=== PATIENT | female | born 1955 | race Caucasian/White ===

== ENCOUNTER 2022-02-20 15:53 | Emergency (ER) | payer OTHER, SELFPAY ==
[2022-02-20 16:02] VITALS: BP 114/72; PULSE 74; RESP 20; TEMP 36.9; O2SAT 98; BMI 28.1
--- NOTE | 2022-02-20 16:22 | CRLHL7_ITS ---
For Patients: As a result of the Cures Act, medical imaging exams and procedure reports are released immediately into your electronic medical record. You may view this report before your referring provider. If you have questions, please contact your health care provider. INDICATION: Fall, injury COMPARISON: 02/23/2019 TECHNIQUE: PA chest and left ribs. FINDINGS: Minimal atelectasis at the left lung base. There is no evidence of pulmonary contusion, pneumothorax or pleural effusion. Mild tortuosity of the aorta. Cardiac silhouette normal. Oblique detail views of the ribs demonstrate no evidence of fracture or intrinsic bone lesion. There is no evidence of pleural hematoma. IMPRESSION: No acute cardiopulmonary disease. No left rib fracture. Dictated by Pako Penaloza MD @ 02/20/2022 5:36:58 PM (Electronically Signed)
--- NOTE | 2022-02-20 16:23 | ED.GENADULT ---
HPI - General Adult General Chief complaint: Shoulder Injury/Pain Stated complaint: FELL AND INJURED LEFT SHOULDER/BREAST AREA Time Seen by Provider: 02/20/22 16:15 History of Present Illness HPI narrative: This 66-year-old female comes in with an injury to her left upper lateral anterior ribs because of a fall that occurred prior to arrival. She tripped over a rug by some steps and fell to the floor. She did not hit her head or have loss of consciousness. She was able to get up and ambulate normally afterwards. She had immediate pain in the left upper lateral and anterior chest. This pain is worse when taking a deep breath. She does not report any other injuries. She does state that certain movements with her left arm make the pain worse but she does not report any injury to her left shoulder. Related Data Home Medications Medication Instructions Recorded Confirmed acyclovir 400 mg tablet 400 mg PO DAILY PRN 02/20/22 02/20/22 amlodipine 10 mg tablet 10 mg PO DAILY 02/20/22 02/20/22 atorvastatin 10 mg tablet 10 mg PO DAILY 02/20/22 02/20/22 flecainide 50 mg tablet 50 mg PO DAILY 02/20/22 02/20/22 fluticasone propionate 50 2 spray intranasal DAILY PRN 02/20/22 02/20/22 mcg/actuation nasal spray,suspension methimazole 5 mg tablet 5 mg PO DAILY 02/20/22 02/20/22 omeprazole 20 mg capsule,delayed 20 mg PO BID 02/20/22 02/20/22 release potassium chloride 10 mEq 10 meq PO BID 02/20/22 02/20/22 capsule,extended release sertraline 50 mg tablet 50 mg PO DAILY 02/20/22 02/20/22 trazodone 50 mg tablet 50 mg PO DAILY 02/20/22 02/20/22 triamterene 37.5 1 cap PO DAILY 02/20/22 02/20/22 mg-hydrochlorothiazide 25 mg capsule Allergies Allergy/AdvReac Type Severity Reaction Status Date / Time nitrofurantoin Allergy Verified 02/20/22 16:10 [From Macrobid] Penicillins Allergy Verified 02/20/22 16:09 Review of Systems Status of ROS: Reports: 10 or more systems reviewed and unremarkable except as noted in History and below Narrative: Constitutional: No fevers, no weight gain or loss. Eyes: No discharge. No vision changes. HENT: No congestion, no sore throat, no ear pain. Cardiovascular: No palpitations. Chest: Pain in left upper anterior lateral chest which is reproducible with certain movements and when pressing in this area. Respiratory: No shortness of breath, no wheezes, no cough. Gastrointestinal: No abdominal pain, no vomiting, no diarrhea. Genitourinary: No dysuria, no hematuria. Musculoskeletal: Normal range of motion. Skin: No rashes, no pruritis. Neurological: No dizziness, weakness, sensory change, speech change. Endo/Heme/Allergies: No bruising or bleeding. No polydipsia. Pysch: no suicidality, no anxiety, no insomnia. All other systems reviewed and are negative. PFSH PFS Social History Smoking Status: Never smoker Do you use any of these nicotine containing products: None How often do you have a drink containing alcohol: never AUDIT-C Alcohol total score: 0 Non-prescribed substance use: denies use Exam Narrative: Exam Narrative: Constitutional: Well-developed, well-nourished, no acute distress. HEENT: Normocephalic, atraumatic. Neck: Normal range of motion. Nontender. Supple. Heart: Regular. No murmurs. Normal rate. Intact distal pulses. Lungs: Clear to auscultation. No wheezes, rhonchi, or rales. Chest: Tenderness in the left upper anterior chest wall which is reproducible with certain movements and with palpating this area. There is no external sign of bruising or other injury. Abdomen: Normal bowel sounds. Nontender. No rebound tenderness. Genitalia: Deferred. Back: No midline tenderness. Normal range of motion. Extremities: Normal range of motion. No injury. Skin: Intact. No rash. Warm. No erythema or pallor. Neurologic: No altered sensation. No weakness. Alert and oriented. Psychiatric: No suicidality. No anxiety or depression. No insomnia. Nursing notes and vitals signs are reviewed. Const: Vital Signs, click to edit/add: Vital Signs - 24 hr 02/20/22 16:02 Temperature 98.5 F Pulse Rate [Right Pulse Oximeter] 74 Respiratory Rate 20 Blood Pressure [Ri ght Upper Arm] 114/72 Pulse Oximetry 98 Oxygen Delivery Me thod Room Air Course Vital Signs Vital signs: Initial Vital Signs Temperature 98.5 F 02/20/22 16:02 Temperature Source Temporal Artery Scan 02/20/22 16:02 Pulse Rate 74 02/20/22 16:02 Respiratory Rate 20 02/20/22 16:02 Blood Pressure 114/72 02/20/22 16:02 Blood Pressure Mean 86 02/20/22 16:02 Blood Pressure Position Sitting 02/20/22 16:02 Pulse Oximetry 98 02/20/22 16:02 Oxygen Delivery Method 02/20/22 16:02 Vital Signs Temperature 98.5 F 02/20/22 16:02 Pulse Rate 74 02/20/22 16:02 Respiratory Rate 20 02/20/22 16:02 Blood Pressure 114/72 02/20/22 16:02 Pulse Oximetry 98 02/20/22 16:02 Oxygen Delivery Method 02/20/22 16:02 Temperature 98.5 F 02/20/22 16:02 Pulse Rate 74 02/20/22 16:02 Respiratory Rate 20 02/20/22 16:02 Blood Pressure 114/72 02/20/22 16:02 Pulse Oximetry 98 02/20/22 16:02 Oxygen Delivery Method 02/20/22 16:02 Medical Decision Making MDM Narrative Medical decision making narrative: This patient fell injuring her ribs as described above. X-ray imaging of the left ribs and chest showed no sign of fracture or pulmonary injury. The patient received a rib belt which provided some relief for her. Additionally prescriptions for tablets of [place] and Toradol were provided. Imaging Data XR R Ribs: Radiologist's impression: No acute cardiopulmonary disease. No left rib fracture. Discharge Plan Discharge Clinical Impression: Contusion of rib on left side Patient Disposition: Home, Self-Care Condition: Stable Instructions: Rib Contusion (ED) Additional Instructions: Take medication as needed and prescribed. Follow up with MD or return if worsening. Prescriptions: No Action acyclovir 400 mg tablet 400 mg PO DAILY PRN Label Comments: TAKE 1 TABLET BY MOUTH THREE TIMES DAILY FOR 5 DAYS AT FIRST SIGN OF COLD SORE REPEAT NEEDED amlodipine 10 mg tablet 10 mg PO DAILY Label Comments: TAKE 1 TABLET BY MOUTH DAILY atorvastatin 10 mg tablet 10 mg PO DAILY flecainide 50 mg tablet 50 mg PO DAILY Label Comments: TAKE 1 TABLET BY MOUTH TWICE DAILY fluticasone propionate 50 mcg/actuation spray,suspension 2 spray INTRANASAL DAILY PRN Label Comments: SHAKE LIQUID AND USE 2 SPRAYS IN EACH NOSTRIL ONCE DAILY DIRECTED methimazole 5 mg tablet 5 mg PO DAILY omeprazole 20 mg capsule,delayed release(DR/EC) 20 mg PO BID Label Comments: TAKE 1 CAPSULE BY MOUTH 1 HOUR BEFORE A MEAL TWICE DAILY potassium chloride 10 mEq capsule, extended release 10 meq PO BID Label Comments: TAKE 1 CAPSULE BY MOUTH TWICE DAILY sertraline 50 mg tablet 50 mg PO DAILY trazodone 50 mg tablet 50 mg PO DAILY triamterene-hydrochlorothiazid 37.5-25 mg capsule 1 cap PO DAILY Label Comments: TAKE 1 CAPSULE BY MOUTH DAILY Follow Up/Referrals: Provider,Not a Local [Primary Care Provider] - Stand Alone Forms: [employer] Info Instructions
== END 2022-02-20 18:03 | disposition home or self-care (01) ==
PROVIDERS: Emergency Provider Emergency Medicine Emergency Medical Services
DX: S20.212A Contusion of left front wall of thorax, initial encounter (principal); W01.198A Fall on same level from slipping, tripping and stumbling with subsequent striking against other object, initial encounter
CPT/HCPCS: 71101; 99284